=== PATIENT | female | born 1990 | race Caucasian/White ===

== ENCOUNTER → 2017-03-29 11:11 | Outpatient (CLI) | payer BC, SELFPAY ==
[2017-04-01 17:11] LABS: HSV 2 IgG, Type Spec <0.91 index (0.00-0.90)
== END ==
PROVIDERS: Family Provider Family Medicine; PCP Family Medicine; Visit Provider Nurse Practitioner Obstetrics & Gynecology
DX: N89.8 Other specified noninflammatory disorders of vagina (principal)
CPT/HCPCS: 86790

== ENCOUNTER → 2017-08-04 11:03 | Outpatient (CLI) | payer BC, SELFPAY ==
[2017-08-04 12:23] LABS: Free Thyroxine Index 1.5 ug/dL (5.93-13.13); T4 (Thyroxine) 4.8 ug/dl (4.7-13.3); Thyroid Stimulating Hormone 0.67 uIU/ml (0.358-3.740); Triiodothryronine (T3) Uptake 31 % (31-39)
[2017-08-05 09:19] LABS: Thyroid Peroxidase Antibodies 14 IU/mL (0-34)
[2017-08-05 13:02] LABS: Triiodothyronine (T3) Free 3.5 pg/mL (2.0-4.4)
== END ==
PROVIDERS: Visit Provider Nurse Practitioner Obstetrics & Gynecology
DX: R68.89 Other general symptoms and signs (principal); R63.5 Abnormal weight gain; R53.83 Other fatigue
CPT/HCPCS: 36415; 84436; 84443; 84479; 84481; 86376

== ENCOUNTER → 2018-04-12 17:09 | Outpatient (CLI) | payer BC, SELFPAY ==
[2018-04-12 19:00] LABS: Free Thyroxine Index 2.1 ug/dL (5.93-13.13); T4 (Thyroxine) 6.3 ug/dl (4.7-13.3); Thyroid Stimulating Hormone 1.54 uIU/ml (0.358-3.740); Triiodothryronine (T3) Uptake 33 % (31-39)
[2018-04-14 06:16] LABS: Thyroid Peroxidase Antibodies 9 IU/mL (0-34)
[2018-04-14 06:17] LABS: Triiodothyronine (T3) Free 3.1 pg/mL (2.0-4.4)
== END ==
PROVIDERS: Visit Provider Nurse Practitioner Obstetrics & Gynecology
DX: E03.9 Hypothyroidism, unspecified (principal); R53.82 Chronic fatigue, unspecified
CPT/HCPCS: 36415; 84436; 84443; 84479; 84481; 86376

== ENCOUNTER → 2018-04-13 13:00 | Outpatient (CLI) | payer BC, SELFPAY ==
--- NOTE | 2018-04-13 13:10 | US_ITS ---
US thyroid HISTORY: ITS.REASON: US Thyroid- Enlarged thyroid ORDERING PHYSICIAN: Buzz Barrow MD PATIENT AGE: 27 years Comparison: None FINDINGS: Right lobe: 5 x 2.6 x 3.2 cm. There is heterogeneous echogenicity of the right lobe. There is a large nodule occupying the right lobe of the thyroid gland measuring 3.7 x 2 cm which is mostly solid with some peripheral hypervascularity and cystic changes centrally Left lobe: 3.7 x 1.3 x 1.2 cm. Isthmus: Unremarkable IMPRESSION: Enlarged right lobe of the thyroid gland with a dominant 3.7 cm nodule. Ultrasound-guided fine-needle aspiration suggested
== END ==
PROVIDERS: PCP Family Medicine; Visit Provider Nurse Practitioner Obstetrics & Gynecology
DX: E04.9 Nontoxic goiter, unspecified (principal)
CPT/HCPCS: 76536

== ENCOUNTER → 2018-05-08 16:35 | Outpatient (CLI) | payer BC, SELFPAY ==
[2018-05-10 15:24] LABS: Thyroid Peroxidase Antibodies 10 IU/mL (0-34)
[2018-05-11 09:47] LABS: Thyroid Stimulating Immunoglob <0.10 IU/L (0.00-0.55)
[2018-05-12 10:51] LABS: Calcitonin <2.0 pg/mL (0.0-5.0)
== END ==
PROVIDERS: Visit Provider Otolaryngology
DX: E04.1 Nontoxic single thyroid nodule (principal)
CPT/HCPCS: 36415; 82308; 84445; 86376

== ENCOUNTER → 2018-05-18 09:48 | Outpatient (CLI) | payer BC, SELFPAY ==
--- NOTE | 2018-05-18 10:10 | US_ITS ---
FNA w guidance Thyroid ultrasound limited HISTORY: Right thyroid nodule ITS.REASON: THYROID NODULE ORDERING PHYSICIAN: Se Pimentel MD PATIENT AGE: 27 years COMPARISON: None Prebiopsy ultrasound: Ultrasound performed of the thyroid gland for planning. The dominant nodule is located and appropriate biopsy site marked. TECHNIQUE: Following obtaining informed consent, using aseptic technique and local anesthesia with buffered lidocaine, fine-needle aspiration was performed of the nodule of interest using sonographic guidance. 3 passes were made into the nodule with a 25-gauge needle. Specimen was given to cytology. The patient tolerated the procedure well without evidence of immediate complications and left the ultrasound suite in stable condition. CYTOLOGY:Pending IMPRESSION: Uneventful ultrasound guided fine needle aspiration of the right lower nodule. No immediate complication. Cytology pending
== END ==
PROVIDERS: PCP Family Medicine; Visit Provider Otolaryngology
DX: E04.1 Nontoxic single thyroid nodule (principal)
CPT/HCPCS: 10005

== ENCOUNTER → 2018-08-04 14:01 | Outpatient (CLI) | payer BC, SELFPAY ==
[2018-08-04 15:37] LABS: Calcium 8.8 mg/dL (8.5-10.1)
[2018-08-04 16:06] LABS: HCG Qualitative, Serum Negative (Negative)
[2018-08-04 17:12] LABS: Basophils % 0.4 % (0.1-2.0); Eosinophils # 0.1 K/mm3 (0.0-0.4); Eosinophils % 2.3 % (0.1-12.0); Hematocrit 37.8 % (37.0-47.0); Hemoglobin 12.9 g/dL (12.2-16.2); Lymphocytes # 2.8 K/mm3 (0.7-4.5); Lymphocytes % 46.8 % (10-50); Mean Corpuscular HGB Conc 34.2 g/dL (31.8-35.4); Mean Corpuscular Hemoglobin 29.3 pg (27.0-31.2); Mean Corpuscular Volume 85.7 fl (81-99); Mean Platelet Volume 8.1 fl (7.4-10.4); Monocytes # 0.3 K/mm3 (0.1-1.0); Monocytes % 5.4 % (1.7-9.3); Neutrophils # 2.7 K/mm3 (1.8-7.8); Neutrophils % 45.2 % (37.0-80.0); Platelet Count 210 K/mm3 (142-424); Red Blood Count 4.42 M/mm3 (4.20-5.40)
== END ==
PROVIDERS: PCP Family Medicine; Visit Provider Otolaryngology
DX: Z01.818 Encounter for other preprocedural examination (principal)
CPT/HCPCS: 36415; 82310; 84703; 85025; 93005

== ENCOUNTER → 2018-09-04 13:03 | Outpatient (CLI) | payer BC, SELFPAY ==
[2018-09-04 14:38] LABS: Free T4 (Free Thyroxine) 1.32 ng/dl (0.76-1.46); Thyroid Stimulating Hormone 0.04 uIU/ml (0.358-3.740)
== END ==
PROVIDERS: Visit Provider Otolaryngology
DX: Z01.419 Encounter for gynecological examination (general) (routine) without abnormal findings (principal); D34 Benign neoplasm of thyroid gland; Z98.890 Other specified postprocedural states
CPT/HCPCS: 36415; 82310; 84439; 84443

== ENCOUNTER → 2019-10-01 11:08 | Outpatient (CLI) | payer OTHER, SELFPAY ==
[2019-10-01 12:49] LABS: Thyroid Stimulating Hormone 0.86 uIU/mL (0.465-4.68)
== END ==
PROVIDERS: Visit Provider Otolaryngology
DX: E03.9 Hypothyroidism, unspecified (principal)
CPT/HCPCS: 36415; 84439; 84443

== ENCOUNTER → 2019-11-05 09:59 | Outpatient (CLI) | payer OTHER, SELFPAY ==
[2019-11-05 11:12] LABS: Free T4 (Free Thyroxine) 1.02 ng/dl (0.78-2.19)
[2019-11-05 11:27] LABS: Thyroid Stimulating Hormone < 0.02 uIU/mL (0.465-4.68)
[2019-11-06 14:11] LABS: Triiodothyronine (T3) Free 3.3 pg/mL (2.0-4.4)
== END ==
PROVIDERS: Visit Provider Otolaryngology
DX: E03.9 Hypothyroidism, unspecified (principal)
CPT/HCPCS: 36415; 84439; 84443; 84481

== ENCOUNTER 2020-03-20 15:23 | Emergency (ER) | payer OTHER, SELFPAY ==
[2020-03-20 15:40] VITALS: BP 132/71; PULSE 86; RESP 20; TEMP 36.9; O2SAT 97; BMI 31.9
--- NOTE | 2020-03-20 15:56 | HMH.EDUTC ---
[facility] [place] Clinical Impression: Close exposure to COVID-19 virus Disposition: Home, Self-Care Condition on Discharge: Good Instructions: DI for COVID-19 (Suspected or Confirmed ), Coronavirus Disease 2019, COVID-19: Testing and Tracing, Preventing the Spread of Coronavirus Discharge Instructions Additional Instructions: *Monitor Temp, Over the counter Motrin or Tylenol as directed/as needed Tylenol every 4 hours and Motrin every 6 hours (as long as your family doctor has told you that you can take it) for fever or pain. and straight to ER if unable to lower temp less than 101.0 after medication given Follow up IMMEDIATELY for new or worsening symptoms or no Noticeable improvement over the next 48-72 hours. 911 for difficulty breathing or swallowing You were tested for today for COVID19 your test result should be back in the next 24-48 hours, you may call to the [facility] to see if your test results are back in the next 48 hours [phone] [facility] hours are 9am-9pm You was given a handout with instructions for Self Quarantine and Self isolation for while you wait on test results and what to do if they are positive If you are positive the Health Dept will be contacting you also Referrals: Mayank Mills MD [Primary Care Provider] - As needed Time of Disposition: 15:58 Medical Decision Making - Rich Inquiry Pt receiving controlled substance: No Rich was queried for this patient: No Vital Signs: 03/20/20 15:40 Temperature 98.4 F Temperature Source Oral Pulse Rate [Right Brachial] 86 Respiratory Rate 20 Blood Pressure [Right Arm] 132/71 Blood Pressure Mean [Right Arm] 91 Blood Pressure Source [Right Arm] Automatic Cuff Blood Pressure Position [Right Arm] Sitting 02 Sat by Pulse Oximetry 97 Orders (Tests/Meds): ORDERS Category Date Time Status Covid-19 Nasal PCR ([facility]) Routine Lab 03/20/20 15:26 Ordered [facility] [place]PI - General Stated complaint: covid test Time Seen by Provider: 03/20/20 15:56 Mode of Arrival: Ambulatory Source of Information: Patient Limitations: No Limitations Description of Symptoms (Recalled from Triage Doc. by RN): REQUESTING COVID TEST D/T EXPOSURE; DENIES SYMPTOMS HEENT Symptoms (Recalled from RN notes): No Resp Symptoms (Recalled from RN notes): No Skin Symptoms (Recalled from RN notes): No MS Symptoms (Recalled from RN notes): No Functional Status (Recalled from RN notes): WNL - History of Present Illness Provider Complaint: Patient state that she has been exposed to COVID by family member States that they recently tested positive for COVID States that she isnt having any symptoms but wanted to get tested - Related Data Home Medications Medication Instructions Recorded Confirmed ketoconazole 2 % shampoo TOPICAL #120 ml 08/17/18 11/05/19 biotin 1 mg capsule 1 mg PO DAILY 02/23/19 11/05/19 ergocalciferol (vitamin D2) 1,250 1,250 mcg PO cap 10/01/19 11/05/19 mcg (50,000 unit) capsule levothyroxine 112 mcg tablet 112 mcg PO tab 10/01/19 11/05/19 Previous Rx's Medication Instructions Recorded levonorgestrel-ethinyl estradiol 1 tab PO DAILY #28 tab 02/23/19 0.1 mg-20 mcg tablet norethindrone 1 mg-ethin. See Rx Instructions .ROUTE 03/04/20 estradiol 20 mcg (24)-iron 75 mg .COMPLEX #28 cap (4) capsule Allergies Allergy/AdvReac Type Severity Reaction Status Date / Time No Known Drug Allergies Allergy Unknown - Verified 11/05/19 16:11 - Worker's Comp Is this a Worker's Comp case?: No [facility] History - Hepatitis A Screen Drug use history?: No High risk sexual behaviors?: No History of sexually transmitted infection?: No Currently employed?: No Childcare worker?: No Do you have indoor plumbing?: Yes Do you have electricity?: Yes Attestation statement:: This patient has been screened for Hepatitis A risk factors. I have reviewed the patient's past medical history: Yes Laterality Cases: Bilateral: Other Other Surgeries: Yes: Thyroidectomy,
[2020-03-20 16:05] VITALS: BP 132/71; PULSE 86; RESP 20; TEMP 36.9; O2SAT 97
== END 2020-03-20 16:10 | disposition home or self-care (01) ==
PROVIDERS: Emergency Provider Nurse Practitioner; PCP Family Medicine
DX: Z20.828 Contact with and (suspected) exposure to other viral communicable diseases (principal)
CPT/HCPCS: 99202; G0463; U0003

== ENCOUNTER → 2020-04-11 07:54 | Outpatient (CLI) | payer OTHER, SELFPAY ==
--- NOTE | 2020-04-11 | CA_ITS ---
APPROVED REPORT Exam: Exercise Treadmill Technologist: Maricarmen Oreilly Ht: 5 ft 2 in Wt: 164 lbs BSA: 1.76 m2 HR: 74 bpm BP: 120/71 mmHg Indications: Chest pain Medical History Medications: Levothyroxine,,,,, BiOTIN,,,,, Vitamin D2,,,,, KETOconazole,,,,, AVIane,,,,, Stress Test Details Test: Jun HR Resting HR: 87 bpm Max Heart Rate (APMHR): 192 bpm Max HR Achieved: 174 bpm Target HR (85% APMHR): 163 bpm % of APMHR: 90 Recovery HR: 108 bpm BP Resting BP: 120.0/71.0 mmHg Max BP: 165.0/84.0 mmHg Recovery BP: 145.0/73.0 mmHg ECG Resting ECG: Sinus rhythm Clinical Exercise duration: 09:44 min Highest Stage Achieved: Exercise capacity: 10.1 METs Stress ECG Conclusion Jun Protocol completed. Patient exercised 9:44. Test stopped due to shortness of breath. METs: 10.1 Maximum heart rate: 174 bpm. Maximum blood pressure: 165/84 Symptoms: Shortness of breath during preak exercise, resolved in recovery. No chest pain. Arrhythmias/Ectopy: No ectopy ST-T Changes: Less than 1.[address] depression. Conclusion: Less than 1.[address] depression. Shortness of breath, no chest pain. No ectopy. Good exercise capacity. Test Summary REST . . . . . . . Sitting REST 07:51 0.0 0.0 87 . 120/ 71 . . Stage 1 01:00 10.0 1.7 100 . . . . Stage 1 02:00 10.0 1.7 112 . . . . Stage 1 03:00 10.0 1.7 110 . 128/ 70 . . Stage 2 01:00 12.0 2.5 125 . . . . Stage 2 02:00 12.0 2.5 125 . . . . Stage 2 03:00 12.0 2.5 127 . 132/ 78 . . Stage 3 01:00 14.0 3.4 147 . . . . Stage 3 02:00 14.0 3.4 152 . . . . Stage 3 03:00 14.0 3.4 149 . 150/ 82 . . Stage 4 00:44 16.0 4.2 171 . . . Stop exercise at 09:44 RECOVERY 01:00 0.0 0.0 138 . 165/ 84 . . RECOVERY 02:00 0.0 0.0 120 . 165/ 84 . . RECOVERY 03:00 0.0 0.0 110 . 152/ 80 . . RECOVERY 04:00 0.0 0.0 111 . 152/ 80 . . RECOVERY 04:58 0.0 0.0 112 . 145/ 73 . . Electronically signed by : Price Blandon, 04/11/2020 09:50:41
== END ==
PROVIDERS: PCP Family Medicine; Visit Provider Nurse Practitioner Family
DX: R07.9 Chest pain, unspecified (principal)
CPT/HCPCS: 93017

== ENCOUNTER → 2020-05-05 13:55 | Outpatient (CLI) | payer OTHER, SELFPAY ==
[2020-05-05 16:10] LABS: Free T4 (Free Thyroxine) 1.06 ng/dl (0.78-2.19)
[2020-05-05 16:25] LABS: Thyroid Stimulating Hormone 0.38 uIU/mL (0.465-4.68)
== END ==
PROVIDERS: Visit Provider Otolaryngology
DX: E03.9 Hypothyroidism, unspecified (principal)
CPT/HCPCS: 36415; 84439; 84443; 84481

== ENCOUNTER → 2020-08-04 08:47 | Outpatient (CLI) | payer OTHER, SELFPAY ==
[2020-08-04 13:40] LABS: HCG,Quantitative 38735 mIU/ml (0-5.42)
== END ==
PROVIDERS: Visit Provider Nurse Practitioner Obstetrics & Gynecology
DX: N92.6 Irregular menstruation, unspecified (principal); Z32.00 Encounter for pregnancy test, result unknown
CPT/HCPCS: 36415; 84702

== ENCOUNTER → 2020-09-02 12:27 | Outpatient (CLI) | payer OTHER, SELFPAY ==
--- NOTE | 2020-09-02 12:28 | US_ITS ---
PROCEDURE: US OB <= 14 WEEKS FETUS CLINICAL INDICATION: US OB DATES Before 14 wks COMPARISON: No exams were available for comparison FINDINGS: An intrauterine gestational sac is present with a pole with a crown-rump length of 4.56cm correlating to gestational age of 11weeks 3days. heart tones are present with an FHR of 149bpm. Yolk sac is noted. No free fluid in the pelvis. No adnexal mass. IMPRESSION: Single early living intrauterine with composite ultrasound age of 11 weeks 3 days with SANDER by ultrasound of 03/21/2021. Dictated by: Jered Garcia MD 09/02/2020 17:17 Jered Garcia MD in [place] 09/02/2020 17:17
[2020-09-02 14:23] LABS: Basophils % 0.5 % (0.1-2.0); Eosinophils # 0.1 K/mm3 (0.0-0.4); Eosinophils % 1.4 % (0.1-12.0); Hematocrit 37.5 % (37.0-47.0); Hemoglobin 13.1 g/dL (12.2-16.2); Lymphocytes # 2.2 K/mm3 (0.7-4.5); Mean Corpuscular HGB Conc 34.8 g/dL (31.8-35.4); Mean Corpuscular Hemoglobin 30.7 pg (27.0-31.2); Mean Corpuscular Volume 88.2 fl (81-99); Mean Platelet Volume 8.7 fl (7.4-10.4); Monocytes # 0.5 K/mm3 (0.1-1.0); Monocytes % 6.8 % (1.7-9.3); Neutrophils # 4.5 K/mm3 (1.8-7.8); Neutrophils % 61.4 % (37.0-80.0); Platelet Count 180 K/mm3 (142-424); Red Blood Count 4.26 M/mm3 (4.20-5.40); Red Cell Distribution Width 12.7 % (11.5-17.5); White Blood Count 7.4 K/mm3 (4.8-10.8)
[2020-09-07 11:05] LABS: HIV Screen 4th Generation wRfx Non Reactive; Hepatitis B Surface Antigen Negative; Hepatitis C Antibody <.1; Rapid Plasma Reagin Ab Titer Non Reactive; Rubella Antibodies, IgG 2.88
[2020-09-07 11:06] LABS: HSV 1 IgG, Type Spec 11.8
== END ==
PROVIDERS: PCP Family Medicine; Visit Provider Nurse Practitioner Obstetrics & Gynecology
DX: O26.841 Uterine size-date discrepancy, first trimester (principal)
CPT/HCPCS: 76801; 85025; 86592; 86695; 86703; 86762; 86790; 86850; 87340; 87380; G0432

== ENCOUNTER → 2020-09-02 13:34 | Outpatient (CLI) | payer OTHER, SELFPAY | PROVIDERS: Visit Provider Nurse Practitioner Obstetrics & Gynecology | DX: Z34.90 Encounter for supervision of normal pregnancy, unspecified, unspecified trimester (principal) | CPT/HCPCS: 85025; 86592; 86695; 86703; 86762; 86790; 86850; 87340; 87380; G0432 ==

== ENCOUNTER → 2020-09-19 12:16 | Outpatient (CLI) | payer OTHER, SELFPAY | PROVIDERS: Visit Provider Nurse Practitioner Obstetrics & Gynecology | DX: Z31.430 Encounter of female for testing for genetic disease carrier status for procreative management (principal); Z36.0 Encounter for antenatal screening for chromosomal anomalies; O28.3 Abnormal ultrasonic finding on antenatal screening of mother | CPT/HCPCS: 36415 ==

== ENCOUNTER → 2020-11-07 08:49 | Outpatient (CLI) | payer OTHER, SELFPAY ==
--- NOTE | 2020-11-07 08:50 | US_ITS ---
PROCEDURE: US OB /MATERNAL DETAIL CLINICAL INDICATION: 20 weeks gestation COMPARISON: US US OB <= 14 WEEKS FETUS from 09/02/2020 FINDINGS: There is a single live fetus present which is in breech presentation. heart body motion noted. The cervix is closed.. The placenta is anterior and grade 1 Complete survey performed and was unremarkable on the submitted images as in PACS. No discrete anomalies identified on survey imaging by technologist. Active fetus. Three-vessel cord with satisfactory umbilical cord insertion. 4- chamber heart noted. Survey of brain & ventricles Unremarkable. Face and neck survey unremarkable. Diaphragm and chest views unremarkable. Abdomen: There is mild bilateral pyelectasis at 7 and 5 mm. Stomach noted and satisfactory. There is minimal prominence of the urinary bladder. Spine: Survey of the spine satisfactory with no anomalies identified nor imaged. Both arms and legs noted. Amniotic Fluid: Adequate. Maternal adnexa: No significant findings. Measurements: Average ultrasound age 20weeks 5days. Gestational Age 20weeks 5days Estimated due date by ultrasound age 0103/22/2021. Estimated weight 357g BPD = 21weeks 2days OFD = 20weeks 5days HC = 20weeks 1day AC = 20weeks 5days FL = 20weeks 2days Growth Percentile= 26% Heart Rate = 149bpm Cerebellum = 21weeks Humerus = 21weeks HC/AC is 1.14 CI is 0.81 FL/BPD is 0.66 FL/AC is 0.21 IMPRESSION: Live IUP with an average ultrasound age of 20 weeks 5 days. All parameters correlate. Fetus is in breech presentation. There is mild bilateral pyelectasis right slightly greater than left at 7 and 6 mm. There is some mild calyceal dilatation on the right. Minimal prominence of the urinary bladder of questionable clinical significance. Recommend 3rd trimester follow-up to assess any change. No other significant anomalies evident. Dictated by: David Lora MD 11/07/2020 12:03 David Lora MD in [place] 11/07/2020 12:03
== END ==
PROVIDERS: PCP Family Medicine; Visit Provider Nurse Practitioner Obstetrics & Gynecology
DX: Z36.0 Encounter for antenatal screening for chromosomal anomalies (principal); Z3A.20 20 weeks gestation of pregnancy
CPT/HCPCS: 76811

== ENCOUNTER → 2020-12-31 08:17 | Outpatient (CLI) | payer OTHER, SELFPAY ==
[2020-12-31 08:52] LABS: Glucose,Fasting 87 mg/dl (74-100)
[2020-12-31 10:39] LABS: Glucose 1 Hour 153 mg/dL (74-100)
== END ==
PROVIDERS: Visit Provider Nurse Practitioner Obstetrics & Gynecology
DX: Z34.90 Encounter for supervision of normal pregnancy, unspecified, unspecified trimester (principal)
CPT/HCPCS: 36415; 82951

== ENCOUNTER → 2021-01-03 07:19 | Outpatient (CLI) | payer OTHER, SELFPAY ==
[2021-01-03 08:18] LABS: Glucose,Fasting 90 mg/dl (74-100)
[2021-01-03 09:16] LABS: Glucose 1 Hour 201 mg/dL (74-100)
[2021-01-03 10:09] LABS: Glucose 2 Hour 122 mg/dL (74-100)
[2021-01-03 11:07] LABS: Glucose 3 Hour 72 mg/dL (74-100)
== END ==
PROVIDERS: Visit Provider Nurse Practitioner Obstetrics & Gynecology
DX: Z34.90 Encounter for supervision of normal pregnancy, unspecified, unspecified trimester (principal)
CPT/HCPCS: 36415; 82951

== ENCOUNTER → 2021-02-17 13:20 | Outpatient (CLI) | payer BC, SELFPAY | PROVIDERS: Visit Provider Nurse Practitioner Obstetrics & Gynecology | DX: Z34.90 Encounter for supervision of normal pregnancy, unspecified, unspecified trimester (principal); Z3A.35 35 weeks gestation of pregnancy | CPT/HCPCS: 86403 ==

== ENCOUNTER → 2021-02-19 13:45 | Outpatient (CLI) | payer BC, SELFPAY ==
--- NOTE | 2021-02-19 13:45 | US_ITS ---
PROCEDURE: US OB BIOPHYSICAL PROFILE CLINICAL INDICATION: US OB BPP/GROWTH for LGA TECHNIQUE: FINDINGS: The following parameters are obtained: Average ultrasound age is Average 36weeks 3days Estimated due date by ultrasound is 03/16/2021. Estimated weight is 2,770g. This is 52 percentile. Single live fetus is present in the cephalic presentation. Cervix is closed measuring 3 cm. The placenta is anterior and grade 2 There is persistent left hydronephrosis and hydroureter. The maximum AP dimension of the left renal pelvis is 15 mm. The ureter is also dilated measuring up to 13 mm in diameter. Urinary bladder is only partially imaged. BPD: 37weeks 5days OFD: 37weeks 5days HC: 36 weeks 6 days AC: 35 weeks 4 days FL: 35 weeks 2 days heart rate: 133bpm bpm. HC/AC: 1.03 Cephalic index: 0.83 FL/BPD: 0.74 FL/AC: 0.22 Amniotic fluid index: 14.92cm Qualitative AFV: 2 breathing movements: 2 Gross body movements: 2 Tone: 2 Biophysical profile score: 8 IMPRESSION: Live IUP which is in cephalic presentation at 36 weeks 3 days with an estimated weight of 2770 g which is 52 percentile. Normal amniotic fluid volume of 15 cm. Biophysical profile 8 of 8 Moderate persistent left hydronephrosis and hydroureter. Dictated by: David Lora MD 02/19/2021 18:05 David Lora MD in [place] 02/19/2021 18:05
== END ==
PROVIDERS: PCP Family Medicine; Visit Provider Nurse Practitioner Obstetrics & Gynecology
DX: O36.60X0 Maternal care for excessive fetal growth, unspecified trimester, not applicable or unspecified (principal)
CPT/HCPCS: 76816; 76819

== ENCOUNTER 2021-03-18 04:57 | Inpatient (IN) | payer BC, SELFPAY ==
[2021-03-18 05:02] VITALS: BMI 40.4
[2021-03-18 05:34] LABS: Microscopic, Urine URINE MICROSCOPIC (MICROSCOPIC)
[2021-03-18 05:39] LABS: Basophils # 0.1 K/mm3 (0-0.2); Basophils % 0.7 % (0.1-2.0); Eosinophils # 0.2 K/mm3 (0.0-0.4); Eosinophils % 1.4 % (0.1-12.0); Hematocrit 39.8 % (37.0-47.0); Hemoglobin 12.8 g/dL (12.2-16.2); Lymphocytes # 3.6 K/mm3 (0.7-4.5); Lymphocytes % 32.3 % (10-50); Mean Corpuscular HGB Conc 32.3 g/dL (31.8-35.4); Mean Corpuscular Hemoglobin 30.7 pg (27.0-31.2); Mean Platelet Volume 9.3 fl (7.4-10.4); Monocytes # 0.7 K/mm3 (0.1-1.0); Monocytes % 6.6 % (1.7-9.3); Neutrophils # 6.6 K/mm3 (1.8-7.8); Neutrophils % 59.1 % (37.0-80.0); Platelet Count 241 K/mm3 (142-424); Red Blood Count 4.19 M/mm3 (4.20-5.40); Red Cell Distribution Width 14.2 % (11.5-17.5); White Blood Count 11.1 K/mm3 (4.8-10.8)
[2021-03-18 05:39] LABS: Appearance,Urine CLEAR (Clear); Bilirubin,Urine Negative (Negative); Blood, Urine 3+ (Negative); Color,Urine YELLOW (Yellow); Glucose,Urine (UA) Negative (Negative); Ketones,Urine Negative (Negative); Leukocyte Esterase,Urine TRACE (Negative); Nitrate,Urine Negative (Negative); Protein,Urine Negative (Negative); Specific Gravity, Urine 1.015 (1.005-1.030)
[2021-03-18 05:40] VITALS: BP 144/63; PULSE 90; RESP 18; TEMP 37.2; O2SAT 98; BMI 40.4
[2021-03-18 05:50] LABS: Amphetamine/Metha Screen,Urine Negative ng/ml (<1000); Barbiturates Screen,Urine Negative ng/ml (<200)
[2021-03-18 05:51] LABS: Benzodiazepines Screen,Urine Negative ng/ml (<200)
[2021-03-18 05:52] LABS: Cannabinoid Screen,Urine Negative ng/ml (<50); Cocaine Screen,Urine Negative ng/ml (<300)
[2021-03-18 05:53] LABS: Methadone Screen,Urine Negative ng/ml (<300)
[2021-03-18 05:54] LABS: Opiate Screen,Urine Negative ng/ml (<300); Phencyclidine Screen,Urine Negative ng/ml (<25)
[2021-03-18 06:04] LABS: Coronavirus 19, PCR Not Detected (NotDetected); Influenza A, PCR Not Detected (NotDetected); Influenza B, PCR Not Detected (NotDetected)
--- NOTE | 2021-03-18 07:34 | HMH.PHAINT ---
MEDICATION RECONCILIATION COMPLETED ON PATIENT USING EXTERNAL FILL HISTORY FROM PHARMACY. -JANE BAXTER, QUINND
--- NOTE | 2021-03-18 08:29 | HMH.LABNOT ---
Labor Note - Subjective: Date: 03/18/21 Time: 08:29 regular contraction - Objective: NST:: Reactive Contractions:: every 4-5 minutes Cervical Dilation:: 4 Effacement:: 75% Station: -3 Membranes: artificially ruptured - Fetus: Monitoring?: Yes monitoring type:: Internal - Assessment: Labor progressing?: Yes Cephalopelvic disproportion?: No Patient Problems: All Active Problems (Acute) - Plan: Anesthesia for epidural?: Yes Continue to labor down?: Yes Plan for ?: No Continue to monitor?: Yes Start pushing?: No Comment:: I ruptured her membranes and there was clear fluid. I inserted a scalp clip and an IUPC.
--- NOTE | 2021-03-18 08:30 | HMH.OBAPHP ---
OB - H&P: HPI Antepartum - History of Present Illness Chief complaint: Term , previous large for gestational age infant History of present illness: She is a 30-year-old 3 para 2 at 39+ weeks gestational age. She previously delivered large babies. They were both over 8 pounds. As result of that she is offered induction of labor at term. - History of Present Criteria for establishing EDC:: LMP confirmed by 1st trimester US Ultrasounds: normal 1st trimester US, normal mid trimester US Obstetrical complications: none Medical complications: none - Labs Blood type: O (+) positive Rubella: immune RPR/VDRL: nonreactive GBS status: positive HBsAG: negative [facility] History I have reviewed the patient's past medical history: Yes *Have you ever received a pneumonia vaccine?: No *Have you received a flu vaccine this season?: No Laterality Cases: Bilateral: Other Other Surgeries: Yes: Thyroidectomy, Other. No: Amputation: No Fractures: No - *Social History Smoking Status: Never smoker Alcohol Intake: never Alcohol Intake Frequency:: other Substance Use Type: denies use *Occupational Status:: employed *Travel in the last 8 weeks: None Family Hx:: Hyperlipidemia, Hypertension Para: 2 Review of Systems - Review of Systems Review of systems:: pertinent systems reviewed and negative unless documented below Meds Home Medications Medication Instructions Recorded Confirmed Type levothyroxine 112 mcg tablet 112 mcg PO DAILY tab 10/01/19 03/18/21 History vitamin no.138-folic acid 1 tab PO DAILY 08/22/20 03/18/21 History 400 mcg-dha 25 mg chewable tablet Ferrous Sulfate 325 mg PO DAILY 03/18/21 03/18/21 History Allergies Allergy/AdvReac Type Severity Reaction Status Date / Time No Known Drug Allergies Allergy Unknown - Verified 03/12/21 09:25 OB - H&P: Exam - Physical Exam Vital signs: Temp Pulse Resp BP Pulse Ox 98.9 F 90 18 144/63 H 98 03/18/21 05:40 03/18/21 05:40 03/18/21 05:40 03/18/21 05:40 03/18/21 05:40 - Constitutional no acute distress - Routine HEENT Exam Head: Present: normocephalic Eye: Present: EOMI, PERRL ENT: Present: mucous membranes moist - Routine Neck Exam Present: supple, full ROM - Routine Respiratory Exam Absent: accessory muscle use (good air entry bilaterally), respiratory distress, wheezes, crackles - Routine Cardiovascular Exam Present: RRR. Absent: murmur - Routine Abdominal Exam Present: soft, normoactive bowel sounds. Absent: tenderness, distended, guarding - Routine Rectal Exam Patient deferred: visual exam, digital exam - Routine Exam Patient deferred: external exam, groin exam, perineal exam - Routine Extremities Exam Present: full ROM. Absent: cyanosis, edema - Routine Skin Exam Present: intact. Absent: cyanosis - Routine Neurological Exam Present: alert, oriented X3 - Routine Psychiatric Exam Present: normal affect OB - Results - Labs Labs: Short CBC 03/18/21 Range/Units 05:25 WBC 11.1 H (4.8-10.8) K/mm3 Hgb 12.8 (12.2-16.2) g/dL Hct 39.8 (37.0-47.0) % Plt Count 241 (142-424) K/mm3 Urine 03/18/21 Range/Units 05:10 Urine Color Yellow (Yellow) Urine Appearance Clear (Clear) Urine pH 7.0 (5.0-8.5) Ur Specific [place] 1.015 (1.005-1.030) Urine Protein Negative (Negative) Urine Glucose (UA) Negative (Negative) OB - A/P Antepartum (1) Normal delivery at term Status: Acute (2) Mother positive for group B Streptococcus colonization Status: Acute - Additional Plan Planning to breastfeed?: Yes Plan: induction Additional Information:: I have ruptured her membranes and placed a scalp clip and IUPC. We will expect a vaginal delivery.
--- NOTE | 2021-03-18 10:29 | HMH.LABNOT ---
Labor Note - Subjective: Date: 03/18/21 Time: 10:29 regular contraction - Objective: NST:: Reactive Contractions:: every 2-3 minutes Cervical Dilation:: 5-6 Effacement:: 90% Membranes: artificially ruptured - Fetus: Monitoring?: Yes monitoring type:: Internal - Assessment: Labor progressing?: Yes Cephalopelvic disproportion?: No Patient Problems: All Active Problems Normal delivery at term (Acute) Mother positive for group B Streptococcus colonization (Acute) (Acute) - Plan: Anesthesia for epidural?: Yes Continue to labor down?: Yes Plan for ?: No Continue to monitor?: Yes Start pushing?: No
--- NOTE | 2021-03-18 11:27 | P.PN_ITS ---
[facility] Anesthesia Checklist - Patient Identification Patient Identification: Arm Band - Structural Data Admitted From: Home Planned Operative Procedure/s: Labor epidural Consent for Planned Operative Procedure(s) Verified: Yes - NPO Status Verified Time NPO: 00:00 - Airway Assessment C-Spine Mobility Assessed: Yes TMJ Mobility Assessed: Yes Dentition: Good Dentition - Neurological Assessment Level of Consciousness: Awake Hx Seizures: No Numbness or tingling in extremities: No - Anesthesia Plan Anesthesia Risk discussed: Yes Anesthesia Plan: Verified ASA Class: II Anesthesia Type: Epidural [facility] History I have reviewed the patient's past medical history: Yes *Have you ever received a pneumonia vaccine?: No *Have you received a flu vaccine this season?: No Anesthesia experience/problems:: None Laterality Cases: Bilateral: Other Other Surgeries: Yes: Thyroidectomy, Other. No: Amputation: No Fractures: No - *Social History Smoking Status: Never smoker Alcohol Intake: never Alcohol Intake Frequency:: other Substance Use Type: denies use *Occupational Status:: employed *Travel in the last 8 weeks: None Family Hx:: Hyperlipidemia, Hypertension Para: 2
--- NOTE | 2021-03-18 13:41 | HMH.LABNOT ---
Labor Note - Subjective: Date: 03/18/21 Time: 13:41 regular contraction - Objective: NST:: Reactive Contractions:: every 2-3 minutes Cervical Dilation:: 9-10 Effacement:: 100% Station: 0 Membranes: artificially ruptured - Fetus: Monitoring?: Yes monitoring type:: Internal - Assessment: Labor progressing?: Yes Cephalopelvic disproportion?: No Patient Problems: All Active Problems Normal delivery at term (Acute) Mother positive for group B Streptococcus colonization (Acute) (Acute) - Plan: Anesthesia for epidural?: Yes Continue to labor down?: Yes Plan for ?: No Continue to monitor?: Yes Start pushing?: Yes
--- NOTE | 2021-03-18 14:04 | HMH.DN ---
- Delivery Note Delivery Date:: 03/18/21 Delivery Time:: 13:56 Anesthesia Type: Epidural Was labor medically induced?: Yes Induction method: per pitocin protocol Gestational age (weeks): 39 delivered prior to 39 weeks?: No Gender: Male at 1 minute: 8 at 5 minutes: 9 Delivery Procedure:: She is a 30-year-old 3 para 2 who was 39+ weeks gestational age. She has had 2 previous large babies so we elected to deliver her at term. She was started on IV oxytocin had her membranes ruptured. Under labor epidural she progressed to full dilation and delivered spontaneously a liveborn male child at 1:56 PM in the afternoon of March 18, 2021. On deliver the head it was noted that there was a loose nuchal cord which was easily reduced. This was followed by the anterior shoulder and the rest the 's body atraumatically. We allowed the cord to continue to pulsate for approximately 1 minute since the baby was vigorous. The cord was then doubly clamped and cut and the was placed on the mother's abdomen for further care. The nurses assigned Apgars of 8 at 1 minute and 9 at 5 minutes we then obtained cord blood. She received IV oxytocin using gentle traction on the cord and countertraction on the fundus I was able to easily deliver the placenta intact at 1:59 PM. It had a normal three-vessel cord. There were no perineal or vaginal lacerations. She has O+ blood, she is rubella immune and she was group B streptococcus positive. She did receive IV antibiotics while in labor. Her estimated blood loss was approximately 150 cc. Placental Delivery Description: Spontaneous
[2021-03-18 19:44] VITALS: BP 123/65; PULSE 93; RESP 18; TEMP 36.9; O2SAT 99
[2021-03-19 03:57] VITALS: BP 128/56; PULSE 95; RESP 18; TEMP 36.9; O2SAT 98
[2021-03-19 06:47] LABS: Hematocrit 36.4 % (37.0-47.0); Hemoglobin 11.8 g/dL (12.2-16.2)
--- NOTE | 2021-03-19 08:57 | P.PN_ITS ---
Internal Medicine - PN: Subj *Date: 03/19/21 *Time: 08:57 Interval history: She is doing very well this morning. She is eating and drinking and ambulating. She is bottlefeeding. Her lochia is normal. Exam Vital signs and Labs for Last 24 Hours: Temp Pulse Resp BP Pulse Ox 98.4 F 95 H 18 128/56 L 98 03/19/21 03:57 03/19/21 03:57 03/19/21 03:57 03/19/21 03:57 03/19/21 03:57 Laboratory Results - last 24 hr 03/19/21 06:26: Hgb 11.8 L, Hct 36.4 L I & O for Last 24 hours: Intake & Output 03/16/21 03/17/21 03/18/21 03/19/21 11:59 11:59 11:59 11:59 Weight 221 lb - Constitutional no acute distress - *Routine HEENT Exam Head: Present: normocephalic Eye: Present: EOMI, PERRL ENT: Present: mucous membranes moist Assessment and Plan (1) Normal delivery at term Status: Acute Category: Medical Code(s): O80 - Encounter for full-term uncomplicated delivery (2) Mother positive for group B Streptococcus colonization Status: Acute Category: Medical Code(s): P00.82 - affected by (posit shelly) maternal group B streptococcus (GBS) colonization - Assessment and plan all Dx Assessment and Plan for all problems:: She continues to do well. We will plan to send her home tomorrow.
[2021-03-19 20:24] VITALS: BP 127/71; PULSE 78; RESP 18; TEMP 37.1; O2SAT 98
[2021-03-20 04:04] VITALS: BP 138/73; PULSE 77; RESP 18; TEMP 36.9; O2SAT 99
--- NOTE | 2021-03-20 09:21 | HMH.OBDCSM ---
General - General Admission date:: 03/18/21 Discharge date: 03/20/21 HPI - History of Present Illness History of present illness: She is a 30-year-old 3 now para 3 who was 39+ weeks gestational age. She has a history of large for gestational age infants so we elected to induce her labor at term. Hospital Course Hospital Course: She was started on IV oxytocin had her membranes ruptured. She progressed to full dilation and delivered spontaneously a liveborn male child at 3:56 PM in the evening of March 18, 2021. The baby weighed 7 pounds 12 ounces and was 20 inches long. He had Apgars of 8 at 1 minute and 9 at 5 minutes. She has done well postoperatively and has remained afebrile throughout her hospitalization. She did develop a spinal headache in the afternoon of her first day. We will plan to give her a blood patch prior to discharge. She has O+ blood, she is rubella immune and was group B streptococcus positive. She did receive IV antibiotics while in labor. She has breast and bottlefeeding. She is discharged home to follow-up with me in approximately 2 weeks time. She will continue with her vitamins and iron. She is given the usual instructions with respect to limiting her activity, driving and sexual activity. Her has had a vasectomy. Her condition on discharge is stable and improved. She does have some depression and she would like to start an antidepressant. Will call in Celexa for her. Objective Vital signs: Temp Pulse Resp BP Pulse Ox 98.5 F 77 18 138/73 99 03/20/21 04:04 03/20/21 04:04 03/20/21 04:04 03/20/21 04:04 03/20/21 04:04 no acute distress - *Routine HEENT Exam Head: Present: normocephalic Eye: Present: EOMI, PERRL ENT: Present: mucous membranes moist DS: Diagnosis - Discharge Diagnosis (1) Normal delivery at term Status: Acute (2) Mother positive for group B Streptococcus colonization Status: Acute (3) Spinal headache complicating labor and delivery, delivered, Status: Acute (4) depression Status: Acute Discharge Plan - Patient Discharge Instructions ACTIVITY: No heavy lifting DIET: continue same diet Additional Instructions: NOTHING IN VAGINA FOR 6 WEEKS NO HEAVY LIFTING OR STRENUOUS ACTIVITY FOLLOW-UP WITH DR. BARROW ON 04/01/21 AT 1:45 Patient Instructions: Depression, Hemorrhage, DI for Labor and Delivery, Vaginal , DI for Pre-eclampsia, [facility] Post Discharge Instructions, Preventing the Spread of Coronavirus Discharge Instructions - Follow up Plan Follow up with: Buzz Barrow MD [Staff Physician] - Disposition: Home, Self-Care Condition at discharge:: Stable Home Medications: Home Medications Medication Instructions Recorded Confirmed Type levothyroxine 112 mcg tablet 112 mcg PO DAILY tab 10/01/19 03/18/21 History vitamin no.138-folic acid 1 tab PO DAILY 08/22/20 03/18/21 History 400 mcg-dha 25 mg chewable tablet Ferrous Sulfate 325 mg PO DAILY 03/18/21 03/18/21 History Citalopram Hydrobromide [Celexa] 10 mg PO DAILY #30 tab 03/20/21 Rx Prescriptions/Medication Reconciliation: New Citalopram Hydrobromide [Celexa] 10 mg PO DAILY #30 tab Continued levothyroxine 112 mcg tablet 112 mcg PO DAILY tab vitamin no.138-folic acid 400 mcg-dha 25 mg chewable tablet 1 tab PO DAILY Ferrous Sulfate 325 mg PO DAILY - Problem Reconciliation Problems Reviewed?: Yes
[2021-03-20 09:28] VITALS: BP 115/56; PULSE 70; RESP 18; TEMP 36.7; O2SAT 99
--- NOTE | 2021-03-20 10:09 | HMH.PROC ---
[facility] Procedure Note Procedure Note:: Consulted for epidural blood patch. Pt states that she had a severe headache last night the was only relieved while lying flat. No complaints of photophobia, tinnitis. Currently pt is sitting up in bed and states that she does not have a headache, but is afraid to go home and have the severe headache come back. Discussed more conservative options with pt, including hydration, caffeine, medications, etc. Pt states that she still wants epidural blood patch. Risks/benefits of Epidural Blood Patch discussed and pt verbalized understanding. Consent obtained. 10:01- Sitting position, sterile prep/drape with betadine. 1% Lidocaine 2 cc at L3/4. 18 G Tuohy needle inserted midline x1, RAYMOND with saline at 7cm. 20 cc of autologous blood then drawn by RN. 14 cc injected at which point pt states alot of pressure. Needle then withdrawn and dressing applied. Pt does not c/o of headache at this time. Education given. No anesthetic complications.
[2021-03-20 11:43] VITALS: BP 132/68; PULSE 97; RESP 18; O2SAT 97
== END 2021-03-20 11:47 | disposition home or self-care (01) | DRG 807 ==
PROVIDERS: Admitting Provider Nurse Practitioner Obstetrics & Gynecology; PCP Family Medicine; Visit Provider Nurse Practitioner Obstetrics & Gynecology
DX: O69.81X0 Labor and delivery complicated by cord around neck, without compression, not applicable or unspecified (principal); Z37.0 Single live birth; O99.820 Streptococcus B carrier state complicating pregnancy; Z3A.39 39 weeks gestation of pregnancy; O89.4 Spinal and epidural anesthesia-induced headache during the puerperium; O99.345 Other mental disorders complicating the puerperium; F53.0 Postpartum depression
CPT/HCPCS: 59409; 62273; 59025; 80305; 81001; 85014; 85018; 85025; 86850; 94761; C1758; C9803; G0283; G0463; J0290; U0003; U0005

== ENCOUNTER → 2022-06-29 14:25 | Outpatient (CLI) | payer BC, SELFPAY ==
[2022-06-29 15:33] LABS: Basophils % 0.6 % (0.1-2.0); Eosinophils # 0.2 K/mm3 (0.0-0.4); Eosinophils % 3.4 % (0.1-12.0); Hematocrit 41.2 % (37.0-47.0); Hemoglobin 13.4 g/dL (12.2-16.2); Lymphocytes # 2.4 K/mm3 (0.7-4.5); Lymphocytes % 37.1 % (10-50); Mean Corpuscular HGB Conc 32.4 g/dL (31.8-35.4); Mean Corpuscular Hemoglobin 29.1 pg (27.0-31.2); Mean Corpuscular Volume 89.7 fl (81-99); Mean Platelet Volume 8.8 fl (7.4-10.4); Monocytes # 0.4 K/mm3 (0.1-1.0); Monocytes % 5.3 % (1.7-9.3); Neutrophils # 3.5 K/mm3 (1.8-7.8); Neutrophils % 53.7 % (37.0-80.0); Platelet Count 228 K/mm3 (142-424); Red Cell Distribution Width 12.9 % (11.5-17.5); White Blood Count 6.6 K/mm3 (4.8-10.8)
[2022-06-29 15:52] LABS: Alanine Aminotransferase 17 U/L (12-78); Albumin Level 4.6 g/dl (3.5-5.0); Albumin/Globulin Ratio 1.8 (1.1-1.8); Alkaline Phosphatase 85 U/L (38-126); Anion Gap 7.7 mEq/L (5-15); Aspartate Amino Transferase 23 U/L (14-36); Bilirubin,Total 0.4 mg/dl (0.2-1.3); Blood Urea Nitrogen 13 mg/dl (7-17); Calcium 8.7 mg/dl (8.4-10.2); Carbon Dioxide 29 mmol/L (22.0-30.0); Chloride 104 mmol/L (98-107); Chol/HDL Ratio 4.9 (1-3.5); Cholesterol 177 mg/dl (140-200); Estimated Glomerular Filt Rate 117 ml/min (>60); GFR (African American) 142 ML/MIN (>60); Globulin 2.6 g/dL (1.3-3.2); Glucose 78 mg/dl (74-100); HDL Cholesterol 36 mg/dl (40-60); Magnesium 1.8 mg/dl (1.6-2.3); Potassium 3.7 mmoL/L (3.5-5.1); Sodium 137 mmol/L (136-145); Total Protein,Serum 7.2 g/dl (6.3-8.2); Triglycerides 126 mg/dl (30-150); VLDL Cholesterol 25 mg/dL (0-40)
[2022-06-29 16:10] LABS: T4 (Thyroxine) 7.6 ug/dl (5.53-11.0)
[2022-06-29 16:13] LABS: Troponin I < 0.01 ng/ml (0.00-0.034)
[2022-06-29 16:24] LABS: Thyroid Stimulating Hormone < 0.02 uIU/mL (0.465-4.68)
[2022-06-30 09:14] LABS: Free T4 (Free Thyroxine) 1.06 ng/dl (0.78-2.19)
[2022-07-01 10:33] LABS: Triiodothyronine (T3) Free 2.9 pg/mL (2.0-4.4)
[2022-07-21 22:36] LABS: Triiodothyronine (T3) Reverse 15.6
== END ==
PROVIDERS: PCP Nurse Practitioner Family; Visit Provider Nurse Practitioner Family
DX: R07.9 Chest pain, unspecified (principal); E89.0 Postprocedural hypothyroidism
CPT/HCPCS: 36415; 80053; 80061; 83735; 84436; 84439; 84443; 84481; 84482; 84484; 85025

== ENCOUNTER → 2022-08-10 11:04 | Outpatient (CLI) | payer BC, SELFPAY | PROVIDERS: PCP Student in an Organized Health Care Education/Training Program; Visit Provider Student in an Organized Health Care Education/Training Program | DX: R51.9 Headache, unspecified (principal); R05.9 Cough, unspecified; R53.83 Other fatigue | CPT/HCPCS: 87635; C9803; U0003; U0005 ==

== ENCOUNTER → 2022-08-23 07:25 | Outpatient (CLI) | payer BC, SELFPAY | LOC: RT 07:27 | PROVIDERS: PCP Nurse Practitioner Family; Visit Provider Physician Assistant | DX: R07.9 Chest pain, unspecified (principal) | CPT/HCPCS: 93306 ==

== ENCOUNTER → 2023-01-21 15:24 | Outpatient (CLI) | payer BC, SELFPAY ==
[2023-01-21 16:28] LABS: Magnesium 1.7 mg/dl (1.6-2.3)
[2023-01-21 16:47] LABS: Free Thyroxine Index 2.3 ug/dL (5.93-13.13); T4 (Thyroxine) 6.7 ug/dl (5.53-11.0); Triiodothryronine (T3) Uptake 34 % (23.5-40.5)
[2023-01-21 17:00] LABS: Thyroid Stimulating Hormone < 0.02 uIU/mL (0.465-4.68)
[2023-01-21 17:20] LABS: Vitamin B12 534 pg/mL (239-931)
[2023-01-21 18:50] LABS: Free T4 (Free Thyroxine) 1.19 ng/dl (0.78-2.19)
== END ==
PROVIDERS: PCP Internal Medicine Adolescent Medicine; Visit Provider Physician Assistant
DX: Z86.39 Personal history of other endocrine, nutritional and metabolic disease (principal); R25.2 Cramp and spasm
CPT/HCPCS: 36415; 82607; 83735; 84436; 84439; 84443; 84479

== ENCOUNTER → 2023-01-27 06:20 | Outpatient (CLI) | payer BC, SELFPAY ==
--- NOTE | 2023-01-27 06:25 | CT_ITS ---
FINAL REPORT TECHNIQUE: Thin section axial CT images with coronal and sagittal reformats were performed through the neck. This study was performed with techniques to keep radiation doses as low as reasonably achievable (ALARA). Individualized dose reduction techniques using automated exposure control or adjustment of mA and/or kV according to the patient's size were employed. CLINICAL HISTORY: HISTORY OF THYROID NODULE, EDEMA COMPARISON: None FINDINGS: Exam is overall limited secondary to lack of IV contrast. There are a few small bilateral posterior triangle nodes identified, but no lymphadenopathy is present. The nasopharynx and hypopharynx are unremarkable. Salivary glands are normal. Larynx is unremarkable. Thyroid gland is unremarkable. There is an air-fluid level in the left maxillary sinus, and mucoperiosteal thickening in the right frontal and bilateral ethmoid air cells. IMPRESSION: No evidence of a thyroid nodule is seen, however exam is limited without intravenous contrast. Air-fluid level in the left maxillary sinus and mucoperiosteal thickening in the right frontal and bilateral ethmoid air cells. Reviewed, Interpreted and Dictated by Savannah Hernandez MD Transcribed by Bhakti Schultz Authenticated and [facility]
== END ==
LOC: RAD 06:21
PROVIDERS: PCP Internal Medicine Adolescent Medicine; Visit Provider Physician Assistant
DX: R60.9 Edema, unspecified (principal); Z86.39 Personal history of other endocrine, nutritional and metabolic disease
CPT/HCPCS: 70490

== ENCOUNTER → 2023-03-05 09:03 | Outpatient (CLI) | payer BC, SELFPAY ==
[2023-03-05 09:38] LABS: Basophils % 0.8 % (0.1-2.0); Eosinophils # 0.2 K/mm3 (0.0-0.4); Eosinophils % 3.6 % (0.1-12.0); Hematocrit 40.8 % (37.0-47.0); Lymphocytes # 2.1 K/mm3 (0.7-4.5); Lymphocytes % 36.6 % (10-50); Mean Corpuscular HGB Conc 34.3 g/dL (31.8-35.4); Mean Corpuscular Volume 90.4 fl (81-99); Mean Platelet Volume 9.1 fl (7.4-10.4); Monocytes # 0.3 K/mm3 (0.1-1.0); Monocytes % 5.4 % (1.7-9.3); Neutrophils % 53.6 % (37.0-80.0); Platelet Count 210 K/mm3 (142-424); Red Blood Count 4.51 M/mm3 (4.20-5.40); Red Cell Distribution Width 12.7 % (11.5-17.5); White Blood Count 5.6 K/mm3 (4.8-10.8)
[2023-03-05 09:39] LABS: Chloride 105 mmol/L (98-107)
[2023-03-05 09:40] LABS: Potassium 4.1 mmoL/L (3.5-5.1); Sodium 139 mmol/L (136-145)
[2023-03-05 09:42] LABS: Alanine Aminotransferase 28 U/L (12-78); Albumin Level 4.6 g/dl (3.5-5.0); Albumin/Globulin Ratio 1.6 (1.1-1.8); Alkaline Phosphatase 90 U/L (38-126); Anion Gap 9.1 mEq/L (5-15); Aspartate Amino Transferase 28 U/L (14-36); Bilirubin,Total 0.6 mg/dl (0.2-1.3); Blood Urea Nitrogen 14 mg/dl (7-17); Carbon Dioxide 29 mmol/L (22.0-30.0); Estimated Glomerular Filt Rate 98 ml/min (>60); GFR (African American) 118 ML/MIN (>60); Globulin 2.9 g/dL (1.3-3.2); Total Protein,Serum 7.5 g/dl (6.3-8.2)
[2023-03-05 09:43] LABS: Calcium 8.7 mg/dl (8.4-10.2); Chol/HDL Ratio 4.6 (1-3.5); Cholesterol 180 mg/dl (140-200); Glucose 98 mg/dl (74-100); HDL Cholesterol 39 mg/dl (40-60); Triglycerides 62 mg/dl (30-150); VLDL Cholesterol 12 mg/dL (0-40)
[2023-03-05 09:55] LABS: Direct LDL Cholesterol 110.76 mg/dL (100-129)
[2023-03-05 10:00] LABS: Free T4 (Free Thyroxine) 0.76 ng/dl (0.78-2.19)
[2023-03-05 10:08] LABS: Hemoglobin A1C 5.2 % (4.0-6.0)
[2023-03-05 10:14] LABS: Thyroid Stimulating Hormone 0.23 uIU/mL (0.465-4.68)
== END ==
PROVIDERS: PCP Internal Medicine Adolescent Medicine; Visit Provider Physician Assistant
DX: Z00.00 Encounter for general adult medical examination without abnormal findings (principal); R22.1 Localized swelling, mass and lump, neck; Z68.35 Body mass index [BMI] 35.0-35.9, adult; Z83.438 Family history of other disorder of lipoprotein metabolism and other lipidemia
CPT/HCPCS: 36415; 80053; 80061; 83036; 84439; 84443; 85025

== ENCOUNTER → 2023-03-10 08:44 | Outpatient (CLI) | payer BC, SELFPAY ==
--- NOTE | 2023-03-10 | US_ITS ---
FINAL REPORT CLINICAL HISTORY: .hx of rt lobe removed-- phys felt something rt side-- COMPARISON: None FINDINGS: THYROID ULTRASOUND: The right lobe of the thyroid gland has been surgically removed. There is a shadowing focus at the site of a palpable abnormality in the right cervical soft tissues, which measures 1.1 cm in diameter likely postoperative scar. The left lobe of the thyroid measures 3.5 x 1.2 x 1.3 cm in size, without evidence of focal abnormality. The isthmus of the thyroid gland measures 2 mm in thickness. IMPRESSION: Prior right thyroid lobectomy. There is a small shadowing focus at the site of the palpable abnormality in the right side of the neck, that likely represents postoperative scar. Left lobe of the thyroid and portions of the isthmus visualized are unremarkable. Reviewed, Interpreted and Dictated by Carlos Manuel Gutiérerz MD Transcribed by Bhakti Schultz Authenticated and [facility]
== END ==
LOC: RAD 08:44
PROVIDERS: PCP Internal Medicine Adolescent Medicine; Visit Provider Physician Assistant
DX: E04.1 Nontoxic single thyroid nodule (principal); Z90.89 Acquired absence of other organs
CPT/HCPCS: 76536

== ENCOUNTER 2023-05-09 20:07 | Emergency (ER) | payer BC, SELFPAY ==
[2023-05-09] VITALS (7 sets, daily range): BP systolic 116–158; BP diastolic 62–99; PULSE 73–88; RESP 14–16; TEMP 36.7; O2SAT 98–100; BMI 36.2
--- NOTE | 2023-05-09 20:06 | ECG_ITS ---
APPROVED REPORT Exam: Resting ECG HR:80 bpm ECG Measurements Heart Rate 80 AXES KS 154 P 50 QRSd 88 QRS 59 QT 369 T 48 QTc 405 Conclusion SINUS RHYTHM NORMAL ECG UNCONFIRMED REPORT Electronically signed by : Mayank Jasso MD 05/10/2023 20:08:21
--- NOTE | 2023-05-09 20:13 | XR_ITS ---
PROCEDURE INFORMATION: Exam: XR Chest Exam date and time: 05/09/2023 8:16 PM Age: 32 years old Clinical indication: Pain; Chest pressure; Additional info: Cp TECHNIQUE: Imaging protocol: Radiologic exam of the chest. Views: 1 view. COMPARISON: CT SOFT TISSUE NECK WO CON 01/27/2023 6:33 AM FINDINGS: Lungs: Unremarkable. No consolidation. Pleural spaces: Unremarkable. No pleural effusion. No pneumothorax. Heart/Mediastinum: Unremarkable. No cardiomegaly. Bones/joints: Unremarkable. IMPRESSION: No acute findings.
[2023-05-09 20:21] LABS: Basophils # 0.1 K/mm3 (0-0.2); Basophils % 0.8 % (0.1-2.0); Eosinophils # 0.3 K/mm3 (0.0-0.4); Eosinophils % 3.9 % (0.1-12.0); Hematocrit 43.5 % (37.0-47.0); Hemoglobin 14.8 g/dL (12.2-16.2); Lymphocytes # 3.4 K/mm3 (0.7-4.5); Lymphocytes % 42.7 % (10-50); Mean Corpuscular HGB Conc 33.9 g/dL (31.8-35.4); Mean Corpuscular Volume 88.5 fl (81-99); Mean Platelet Volume 9.1 fl (7.4-10.4); Monocytes # 0.3 K/mm3 (0.1-1.0); Monocytes % 3.8 % (1.7-9.3); Neutrophils # 3.9 K/mm3 (1.8-7.8); Neutrophils % 48.7 % (37.0-80.0); Platelet Count 215 K/mm3 (142-424); Red Blood Count 4.92 M/mm3 (4.20-5.40)
[2023-05-09 20:27] LABS: Alanine Aminotransferase 19 U/L (12-78); Albumin Level 5.1 g/dl (3.5-5.0); Albumin/Globulin Ratio 1.5 (1.1-1.8); Alkaline Phosphatase 75 U/L (38-126); Anion Gap 12.1 mEq/L (5-15); Aspartate Amino Transferase 30 U/L (14-36); Bilirubin,Total 0.5 mg/dl (0.2-1.3); Blood Urea Nitrogen 14 mg/dl (7-17); Calcium 9.7 mg/dl (8.4-10.2); Carbon Dioxide 30 mmol/L (22.0-30.0); Chloride 105 mmol/L (98-107); Creatinine Clearance Estimated 165 mL/min (50-200); Estimated Glomerular Filt Rate 98 ml/min (>60); GFR (African American) 118 ML/MIN (>60); Globulin 3.3 g/dL (1.3-3.2); Glucose 88 mg/dl (74-100); Potassium 4.1 mmoL/L (3.5-5.1); Sodium 143 mmol/L (136-145); Total Protein,Serum 8.4 g/dl (6.3-8.2)
[2023-05-09 20:44] LABS: Troponin I < 0.01 ng/ml (0.00-0.034)
--- NOTE | 2023-05-09 20:47 | ED_ITS ---
Discharge Plan Disposition Patient Disposition: Home, Self-Care Condition: Good Prescriptions Prescriptions: No Action levothyroxine 112 mcg tablet 112 mcg PO DAILY azithromycin 250 mg tablet 250 mg PO .COMPLEX Rx Instructions: 250 mg orally; methylprednisolone 4 mg tablets,dose pack See Rx Instructions PO PER PKG DIR Qty: 21 0RF Rx Instructions: PO PER PKG DIR snaotbnyvxnbpwm-lxysgqcbc-PV [Bromfed DM] 2-30-10 mg/5 mL syrup 5 ml PO Q4-6H PRN (Reason: sinus symptoms) Qty: 118 0RF citalopram 20 mg tablet 20 mg PO DAILY Qty: 30 5RF Referrals Follow up/Referrals: Mayank Jasso MD [Primary Care Provider] - See instructions Activity Restrictions/Add. Instructions Additional Instructions/Restrictions: Please follow-up with PCP for reevaluation. Please make an appointment with gastroenterology for evaluation of chronic constipation. Return to the ER for any worsening symptoms or change in condition. Clinical Impressions Clinical Impression: Paresthesia, Constipation, Impingement syndrome of left shoulder region Instructions Patient Instructions: DI for Cervical Radiculopathy, DI for Constipation Discharge ED Provider: Lina Durbin [facility] <AMANDEEP Maddox - Last Filed: 05/09/23 23:05> General Chief Complaint: Chest Pain Stated Complaint: cp Time Seen by Provider: 05/09/23 20:46 Mode of Arrival: Ambulatory Source of Information: Patient Limitations: No Limitations Description of Symptoms (Recalled from ER Triage Doc. by RN): pt c/o lt side ac hy chest pain episodes radiating down lt arm x a couple days Related Data Home Medications Medication Instructions Recorded Confirmed levothyroxine 112 mcg tablet 112 mcg PO DAILY THYROID 10/01/19 08/10/22 azithromycin 250 mg tablet 250 mg PO .COMPLEX 08/10/22 08/10/22 Previous Rx's Medication Instructions Recorded tilsrvoqtrtdbar-qitbksxzsrjelom-DI 5 ml PO Q4-6H PRN sinus symptoms 08/10/22 2 mg-30 mg-10 mg/5 mL oral syrup #118 mL (Bromfed DM) methylprednisolone 4 mg tablets in See Rx Instructions PO PER PKG DIR 08/10/22 a dose pack #21 tabs citalopram 20 mg tablet 20 mg PO DAILY #30 tabs 03/31/23 Allergies Allergy/AdvReac Type Severity Reaction Status Date / Time No Known Drug Allergies Allergy Unknown - Verified 08/10/22 10:53 <Lina Durbin MD - Last Filed: 05/10/23 00:25> History of Present Illness HPI narrative: 32-year-old female with previous medical history of mild chronic constipation presents with 2 days of left shoulder pain that she describes as severe sensitivity and tingling of the skin to light touch over her left shoulder. It is also associated with some tenderness of the left trapezius muscles. Patient also states that for the past 2 weeks she has had minimal bowel movements, only having very small hard stools. She typically has moderate constipation at baseline but using ltsq-eou-xftzdjh laxatives have not improved this. She is passing flatus normally and not having any nausea, vomiting, or abdominal pain. [facility] <AMANDEEP Maddox - Last Filed: 05/09/23 23:05> [facility] Disclaimer: The information contained in this section may have been updated after the patient was seen, as this information can be updated by other users. Surgical History H/O thyroidectomy Social History Smoking Status: Never smoker alcohol intake: never substance use type: denies use current occupational status: employed Travel in the last 8 weeks: None <AMANDEEP Maddox - Last Filed: 05/09/23 23:05> ROS Obtained: Yes Systems reviewed as appropriate & no additional complaints except as documented Physical Exam <AMANDEEP Maddox - Last Filed: 05/09/23 23:05> General General appearance: alert and in no apparent distress Head Head exam: atraumatic and normal inspection Eye Eye exam: Present normal appearance, PERRL and EOMI ENT ENT exam: Present normal exam, normal oropharynx and mucous membranes moist Neck Neck exam: Present normal inspection, full ROM and trachea midline; Absent lymphadenopathy Chest Chest inspection: Present normal inspection and symmetric chest wall rise Respiratory Respiratory exam: Present normal lung sounds bilaterally; Absent accessory mus joyce use Cardiovascular Cardiovascular exam: Present regular rate, normal rhythm, normal heart sounds, +S1 and +S2 Abdominal Exam Abdominal exam: Present soft and normal bowel sounds; Absent tenderness, guarding or rebound Extremities Exam Extremities exam: Present normal inspection and full ROM Neurological Exam Neurological exam: Present alert, oriented X3 and CN II-XII intact Psychiatric Psychiatric exam: Present normal affect and normal mood Skin Skin exam: Present warm, dry and normal color Lymphatic Lymphatic Findings: no adenopathy <Lina Durbin MD - Last Filed: 05/10/23 00:25> Back Exam Back exam: Present normal inspection and tenderness (Mild tenderness to palpation and firmness of the left trapezius muscle, compared to no tenderness or firmness of the right trapezius muscle. Tenderness to superficial touch of the left lateral shoulder) HEART Score <AMANDEEP Maddox - Last Filed: 05/09/23 23:05> HEART Score HEART Score assessment performed?: No Critical Care <AMANDEEP Maddox - Last Filed: 05/09/23 23:05> Critical Care Time Critical Care Time: No Medical Decision Making <AMANDEEP Maddox - Last Filed: 05/09/23 23:05> Medical Records Medical records reviewed: Yes I reviewed the patient's medical records. Rich Inquiry Pt receiving controlled substance: No Vital Signs Vital Signs: 05/09/23 20:08 05/09/23 20:12 05/09/23 21:16 Temperature 98.0 F Temperature Source Oral Pulse Rate 88 76 Pulse Rate [Right] 88 Respiratory Rate 16 16 Blood Pressure Blood Pressure [Right Arm] 158/99 H Blood Pressure Mean Blood Pressure Mean [Right Arm] 118 02 Sat by Pulse Oximetry 100 98 05/09/23 21:30 05/09/23 22:00 05/09/23 22:30 Temperature Temperature Source Pulse Rate 75 75 73 Pulse Rate [Right] Respiratory Rate 14 16 16 Blood Pressure 118/84 135/81 117/84 Blood Pressure [Right Arm] Blood Pressure Mean 91 88 90 Blood Pressure Mean [Right Arm] 02 Sat by Pulse Oximetry 98 98 99 05/09/23 23:00 Temperature Temperature Source Pulse Rate 74 Pulse Rate [Right] Respiratory Rate Blood Pressure 116/62 Blood Pressure [Right Arm] Blood Pressure Mean 89 Blood Pressure Mean [Right Arm] 02 Sat by Pulse Oximetry 99 Lab Data Lab results reviewed: Yes I reviewed the patient's lab results. Labs: Lab Results 05/09/23 20:05: WBC 8.0, RBC 4.92, Hgb 14.8, Hct 43.5, MCV 88.5, MCH 30.0, MCHC 33.9, RDW 13.0, Plt Count 215, MPV 9.1, Neut % (Auto) 48.7, Lymph % (Auto) 42.7, [place] % (Auto) 3.8, Eos % (Auto) 3.9, Baso % (Auto) 0.8, Neut # (Auto) 3.9, Lymph # (Auto) 3.4, [place] # (Auto) 0.3, Eos # (Auto) 0.3, Baso # (Auto) 0.1, Sodium 143, Potassium 4.1, Chloride 105, Carbon Dioxide 30, Anion Gap 12.1, BUN 14, Creatinine 0.70, Estimated Creat Clear 165, Estimated GFR 98, Est GFR ( Amer) 118, Glucose 88, Calcium 9.7, Magnesium 2.2, Total Bilirubin 0.5, AST 30, ALT 19, Alkaline Phosphatase 75, Troponin I < 0.01 05/09/23 20:05: Troponin I < 0.01, C-Reactive Protein 0.7, Total Protein 8.4 H, Albumin 5.1 H, Globulin 3.3 H, Albumin/Globulin Ratio 1.5 05/09/23 20:05 05/09/23 20:05 Response Orders (Tests/Meds): ED MEDICATIONS Discontinued Medications Generic Name Dose Route Start Last Admin Trade Name Freq PRN Reason Stop Dose Admin Acetaminophen 1,000 mg 05/09/23 21:32 05/09/23 21:42 Acetaminophen 1,000mg/100ml Vial IV 05/09/23 21:33 1,000 mg ONCE ONE Administration Ketorolac Tromethamine 15 mg 05/09/23 21:32 05/09/23 21:42 Ketorolac 30mg/Ml Vial IV 05/09/23 21:33 15 mg ONCE ONE Administration ORDERS Category Date Time Status Chest XR -- portable [XR chest portable] Stat Exams 05/09/23 20:13 Completed KUB (single view) [XR KUB] Stat Exams 05/09/23 21:34 Completed CRP [C-Reactive Protein] Stat Lab 05/09/23 20:05 Completed Complete Blood Count Auto Diff Stat Lab 05/09/23 20:05 Completed Comprehensive Metabolic Panel Stat Lab 05/09/23 20:05 Completed Magnesium Stat Lab 05/09/23 20:05 Completed Troponin I Q3H Lab 05/09/23 20:05 Completed Troponin I Stat Lab 05/09/23 20:05 Completed MDM Narrative Medical Decision Narrative: In summary patient is a 32-year-old female who presents to the emergency department for evaluation of left-sided upper chest and left upper extremity pain and constipation. Patient is hemodynamically stable upon arrival, afebrile. Physical exam reveals tenderness to palpation at the acromion with worsening discomfort with abduction and external rotation of the shoulder joint. Patient is neurovascularly intact distally in the left upper extremity. Patient is hypersensitive to palpation in the upper outer anterior chest wall at the axilla and surrounding area. There is no deformities contusions abrasions erythema edema or induration. Patient has no tenderness palpation mid sternum. Patient also is slightly tender over the left trapezius. Patient denies chest pain shortness of breath fever chills hemoptysis hematochezia melena nausea vomiting diarrhea. In fact patient reports having had no bowel movement for approximately 2 weeks despite taking MiraLAX and docusate.. Differential diagnosis includes ACS versus neuropathy versus radiculopathy versus impingement syndrome versus brachial plexus stretch versus functional constipation etc. Initial workup will be conducted with hematologic labs radiographic imaging twelve-lead EKG. Initial interventions include Toradol and acetaminophen along with an enema. Initial workup reviewed by me which showed her laboratory v esication's nonactionable including undetectable troponins and my informal interpretation of her radiographic imaging that showed no acute processes but likely increased stool burden and the sigmoid colon and rectum. Upon repeat evaluation improved reduction in her left upper extremity chest pain. And results of the enema. Given this Prober for discharge home with recommendations for follow-up with PT OT and gastroenterology as an outpatient <Lina Durbin MD - Last Filed: 05/10/23 00:25> Vital Signs Vital Signs: 05/09/23 20:08 05/09/23 20:12 05/09/23 21:16 Temperature 98.0 F Temperature Source Oral Pulse Rate 88 76 Pulse Rate [Right] 88 Respiratory Rate 16 16 Blood Pressure Blood Pressure [Right Arm] 158/99 H Blood Pressure Mean Blood Pressure Mean [Right Arm] 118 02 Sat by Pulse Oximetry 100 98 05/09/23 21:30 05/09/23 22:00 05/09/23 22:30 Temperature Temperature Source Pulse Rate 75 75 73 Pulse Rate [Right] Respiratory Rate 14 16 16 Blood Pressure 118/84 135/81 117/84 Blood Pressure [Right Arm] Blood Pressure Mean 91 88 90 Blood Pressure Mean [Right Arm] 02 Sat by Pulse Oximetry 98 98 99 05/09/23 23:00 Temperature Temperature Source Pulse Rate 74 Pulse Rate [Right] Respiratory Rate Blood Pressure 116/62 Blood Pressure [Right Arm] Blood Pressure Mean 89 Blood Pressure Mean [Right Arm] 02 Sat by Pulse Oximetry 99 Lab Data Labs: Lab Results 05/09/23 20:05: WBC 8.0, RBC 4.92, Hgb 14.8, Hct 43.5, MCV 88.5, MCH 30.0, MCHC 33.9, RDW 13.0, Plt Count 215, MPV 9.1, Neut % (Auto) 48.7, Lymph % (Auto) 42.7, [place] % (Auto) 3.8, Eos % (Auto) 3.9, Baso % (Auto) 0.8, Neut # (Auto) 3.9, Lymph # (Auto) 3.4, [place] # (Auto) 0.3, Eos # (Auto) 0.3, Baso # (Auto) 0.1, Sodium 143, Potassium 4.1, Chloride 105, Carbon Dioxide 30, Anion Gap 12.1, BUN 14, Creatinine 0.70, Estimated Creat Clear 165, Estimated GFR 98, Est GFR ( Amer) 118, Glucose 88, Calcium 9.7, Magnesium 2.2, Total Bilirubin 0.5, AST 30, ALT 19, Alkaline Phosphatase 75, Troponin I < 0.01 05/09/23 20:05: Troponin I < 0.01, C-Reactive Protein 0.7, Total Protein 8.4 H, Albumin 5.1 H, Globulin 3.3 H, Albumin/Globulin Ratio 1.5 Response Orders (Tests/Meds): ED MEDICATIONS Discontinued Medications Generic Name Dose Route Start Last Admin Trade Name Freq PRN Reason Stop Dose Admin Acetaminophen 1,000 mg 05/09/23 21:32 05/09/23 21:42 Acetaminophen 1,000mg/100ml Vial IV 05/09/23 21:33 1,000 mg ONCE ONE Administration Ketorolac Tromethamine 15 mg 05/09/23 21:32 05/09/23 21:42 Ketorolac 30mg/Ml Vial IV 05/09/23 21:33 15 mg ONCE ONE Administration ORDERS Category Date Time Status Chest XR -- portable [XR chest portable] Stat Exams 05/09/23 20:13 Completed KUB (single view) [XR KUB] Stat Exams 05/09/23 21:34 Completed CRP [C-Reactive Protein] Stat Lab 05/09/23 20:05 Completed Complete Blood Count Auto Diff Stat Lab 05/09/23 20:05 Completed Comprehensive Metabolic Panel Stat Lab 05/09/23 20:05 Completed Magnesium Stat Lab 05/09/23 20:05 Completed Troponin I Q3H Lab 05/09/23 20:05 Completed Troponin I Stat Lab 05/09/23 20:05 Completed MDM Narrative Medical Decision Narrative: In summary patient is a 32-year-old female who presents to the emergency depart ment for evaluation of left-sided upper chest and left upper extremity pain and constipation. Patient is hemodynamically stable upon arrival, afebrile. Physical exam reveals tenderness to palpation at the acromion with worsening discomfort with abduction and external rotation of the shoulder joint. Patient is neurovascularly intact distally in the left upper extremity. Patient is hypersensitive to palpation in the upper outer anterior chest wall at the axilla and surrounding area. There is no deformities contusions abrasions erythema edema or induration. Patient has no tenderness palpation mid sternum. Patient also is slightly tender over the left trapezius. Patient denies chest pain shortness of breath fever chills hemoptysis hematochezia melena nausea vomiting diarrhea. In fact patient reports having had no bowel movement for approximately 2 weeks despite taking MiraLAX and docusate.. Differential diagnosis includes ACS versus neuropathy versus radiculopathy versus impingement syndrome versus brachial plexus stretch versus functional constipation etc. Initial workup will be conducted with hematologic labs radiographic imaging twelve-lead EKG. Initial interventions include Toradol and acetaminophen along with an enema. Initial workup reviewed by me which showed her laboratory vesication's nonactionable including undetectable troponins and my informal interpretation of her radiographic imaging that showed no acute processes but likely increased stool burden and the sigmoid colon and rectum. Upon repeat evaluation improved reduction in her left upper extremity chest pain. Enema was administered and patient had dramatic improvement in her ability to have a bowel movement, she had multiple large bowel movements and improvement in her comfort. Given this appropriate for discharge home with recommendations for follow-up with PT OT and gastroenterology as an outpatient The above medical decision making portion was authored by AMANDEEP Maddox. I was consulted by the CONCEPCIÓN and we discussed the complexity of the problems being addressed. I approved the treatment and management plan for this patient's care in the emergency department, thus performing a substantive portion of the medical decision making. Signed, Lina Durbin MD
--- NOTE | 2023-05-09 21:34 | XR_ITS ---
PROCEDURE INFORMATION: Exam: XR Abdomen Exam date and time: 05/09/2023 9:40 PM Age: 32 years old Clinical indication: Constipation TECHNIQUE: Imaging protocol: Radiologic exam of the abdomen. Views: Frontal supine view of the abdomen. 1 View. COMPARISON: CR XR CHEST PORTABLE 05/09/2023 8:16 PM FINDINGS: Gastrointestinal tract: Normal. Normal bowel gas pattern. No significant constipation. No bowel dilation. Bones/joints: Unremarkable. IMPRESSION: No acute findings.
[2023-05-09] MEDS: ACETAMINOPHEN 1,000MG/100ML VIAL 1000 MG IV (21:42)
[2023-05-09] MEDS: KETOROLAC 30MG/ML VIAL 15 MG IV (21:42)
[2023-05-09 21:46] LABS: Magnesium 2.2 mg/dl (1.6-2.3)
[2023-05-09 21:51] LABS: C-Reactive Protein 0.7 mg/L (0-4)
[2023-05-09 21:59] LABS: Troponin I < 0.01 ng/ml (0.00-0.034)
--- NOTE | 2023-05-09 23:41 | PC.NURSE ---
Pt has had large BM. notified
[2023-05-10 00:18] VITALS: BP 115/87; PULSE 71; RESP 16; TEMP 36.7; O2SAT 98
== END 2023-05-10 00:20 | disposition home or self-care (01) ==
PROVIDERS: Physician Assistant; Emergency Provider Emergency Medicine; PCP Internal Medicine Adolescent Medicine
DX: R07.9 Chest pain, unspecified (principal); M75.42 Impingement syndrome of left shoulder; K59.00 Constipation, unspecified; R20.2 Paresthesia of skin
CPT/HCPCS: 71045; 74018; 80053; 83735; 84484; 85025; 86140; 93005; 96374; 96375; 99285; J0131